=== PATIENT | female | born 1990 | race Asian ===

== ENCOUNTER → 2018-10-18 | Emergency (ER) | payer OTHER ==
[~2018-10-18] VITALS: Ht 152.4 cm; Wt 62.1 kg
[~2018-10-18] MED LIST: EXCED PO
[2018-10-19 00:05] VITALS: BP_SYST 122
== END | disposition still patient (30) ==
LOC: SED 23:55
DX: R05 Cough (principal); R06.02 Shortness of breath; R09.81 Nasal congestion; Z53.21 Procedure and treatment not carried out due to patient leaving prior to being seen by health care provider